=== PATIENT | male | born 1985 ===

== ENCOUNTER 2023-11-11 20:29 | Emergency (ER) | payer SELFPAY ==
[~2023-11-11] VITALS: Ht 172.7 cm; Wt 73.0 kg
[2023-11-11 20:31] VITALS: BP 140/80; PULSE 90; RESP 16; TEMP 98.8; O2SAT 98
== END 2023-11-11 21:31 | disposition left against medical advice (07) ==
LOC: ER 20:29
DX: Z53.21 Procedure and treatment not carried out due to patient leaving prior to being seen by health care provider (principal)
CPT/HCPCS: 99281